=== PATIENT | female | born 1970 | race Caucasian/White ===

== ENCOUNTER 2016-09-12 12:22 | Day surgery (SDC) | payer OTHER ==
[2016-09-12] VITALS (9 sets, daily range): BP systolic 112–142; BP diastolic 70–86; PULSE 70–94; RESP 12–23; O2SAT 96–100
[~2016-09-12] VITALS: Ht 170.2 cm; Wt 78.4 kg
--- NOTE | 2016-09-12 09:08 | PCM.HPANE ---
Patient Data Date of Service: Sep 12, 2016 Surgeon Admitting Provider: Attending Provider:Mina Cooper DO Primary Care Physician:Dell Kate MD Other Provider:Jatin Chen Anesthesia Reason for Visit Right Knee Medial Meniscal Tear Ht/WT & BMI Height (Feet): 5 Height (Inches): 8 Weight (Kilograms): 78.92 Body Mass Index 26.00 Allergies Coded Allergies: latex (Verified Allergy, Severe, 05/11/09) Past Anesthesia History Anesthesia History: Denies:: Abnormal Airway, Anesthesia Reactions, Difficult Intubation, Fam Anesthesia Reaction Diabetes History Hx Diabetes?: No MRSA MRSA: No Medications Hypertension Medication: No Home Meds Incl Beta Abraham: No Reported Medications [ocp] No Conflict Check1 Tab DAILY 09/08/16 Cetirizine HCl (Zyrtec)10 Mg Oofavlv04 Mg PO HS PRN allergy sx #30 CAPSULE Ref 0 09/08/16 Omeprazole 20 Mg Capsule.dr20 Mg PO DAILY Ref 0 09/08/16 Multivitamin (Multi Vitamin Daily)1 Each Tablet1 Each PO DAILY 30 Days Ref 0 09/08/16 History History of ENT Problems?: Yes HEENT History: Positive for:: Sinus Problem (current sinus issues- ) Denies:: Abnormal Airway Cataracts Difficult Intubation Dysphagia Glaucoma Hearing Problem TMJ Hx of Heart Problems?: No Cardiovascular History: Denies:: AICD Abdominal Aortic Aneurism Atrial Fibrillation Chest Pain Edema Heart Murmur Hypertension Irregular Heartbeat Pacemaker Hx of Respiratory Problem?: No Respiratory History: Denies:: Asthma COPD Emphysema Oxygen Administration Pneumonia Tuberculosis Use of C-PAP Machine Use of Inhalers / NEBS Hx Neurologic Problems?: No Neurological History: Denies:: CVA Dizziness Headaches Multiple Sclerosis Parkinson's Disease Seizures Hx of GI Problems?: Yes Gastrointestinal History: Positive for:: Gastroesphageal Reflux (on rx) Heartburn Denies:: Cirrhosis Gall Bladder Disease Gastrointestinal Bleeding Hepatitis Hiatal Hernia Liver Disease Rectal Bleeding Hx of Problems?: No Genitourinary History: Denies:: Kidney Stones Urinary Tract Infection Female Hx: Denies:: Currently (on BCP) Problems with Breasts? (benign lumpectomy left breast) Skin History: Denies:: History Skin Disorders? Pressure Ulcers Hx Musculoskeletal Problems?: Yes Musculoskeletal History: Positive for:: Musculoskeletal Trauma (right knee current admission problem) Denies:: Back Injury Degenerative Joint Fibromyalgia Joint Replacement Osteoarthritis Rheumatoid Arthritis Hx of Psycho/Social Problems?: No Psycho Social History: Denies:: Anxiety Hx Depression Hx Surgeries?: Yes (tonsil, breast lumpectomy, sinus ) Hx Any Other Health Problems?: Yes Other History: Denies:: Cancer Thyroid Disease History Blood Transfusions: Positive for:: Accept Blood Products? Denies:: Blood Transfusions Hx Diabetes: No Hx Alcohol Use: YesAlcoholic Drinks Per Day: once monthlyHx Substance Use: No Have You Smoked inLast 12 mo: No Stop/Bang Treated for Sleep Apnea?: No Do You Have a CPAP Machine?: No S-Snoring: Do You Snore Loudly: No T-Tired: feel tired, fatigued: No O-Obsered: Observed not breath: No P-Blood Pressure: treated: No B- Body Mass Index > 35 kg/m2: No A- Age over 50: No N- Neck Large Circumference: No G- Gender Male: No RAMEZ Total Score: 0 RAMEZ Risk Assessment: Low Risk, <3 Yes Risk Assessment Category Category 1A: Patient has history of documented sleep apnea, and HAS NOT received any narcotic, sedative or anesthesia administration during this stay. Category 1B: Patient has history of documented sleep apnea, and HAS received any narcotic , sedative or anesthesia administration during this stay Category 2: Patient has SUSPECTED Obstructive Sleep Apnea, and HAS received any narcotic , sedative or anesthesia administration during this stay. Category 3: Patient has SUSPECTED Obstructive Sleep Apnea and HAS NOT received narcotic, sedative or anesthesia administration during this stay. Category 4: Outpatient in Procedural Areas with known sleep apnea or who screen positive for High Risk via the STOP/BANG questionnaire. Exam Exam General Appearance: Alert, Oriented X3, Cooperative, No Acute Distress HEENT/AIRWAY: MP 2 Lungs: Clear to Auscultation, Normal Air Movement Heart: Exam Unremarkable, Normal S1, Normal S2 Plan Impression Patient chart reviewed, patient interviewed and anesthestic plan with risks, benefits, and alternatives discussed, and informed consent obtained. ASA Physical Status: ASA1 Normal Healthy Anesthetic Plan: Gustavo Burt DO Sep 12, 2016 09:08
[~2016-09-12 12:22] MED LIST: CETI10CA PO; MULT-1018 PO; OCP; OMEP20CA11 PO
[2016-09-12] MEDS ORDERED: Ketamine 10 mg/mL 20 mL Inj ONE (12:23)
[2016-09-12] MEDS ORDERED: Propofol 10,000 mCg/mL 20 mL Inj ONE (12:23)
[2016-09-12] MEDS ORDERED: Dexamethasone 4 mg/mL Inj ONE (12:23)
[2016-09-12] MEDS ORDERED: Ondansetron 2 mg/mL 2 mL Inj ONE (12:23)
[2016-09-12] MEDS ORDERED: fentaNYL-PF 50 mCg/mL 2 mL Inj ONE (12:23)
[2016-09-12] MEDS: Lactated Ringer's 1,000 ML IV SCH ×2 (12:48→14:00)
[2016-09-12] MEDS ORDERED: LEVO1TAB17 PO (12:49)
[2016-09-12] MEDS ORDERED: Lidocaine 2%-Epi 1:100,000 20 mL Inj INFILTRATE ONE (15:03)
[2016-09-12] MEDS ORDERED: Ropivacaine-PF 0.5% 30 mL Inj INFILTRATE ONE (15:14)
[2016-09-12] MEDS ORDERED: Atropine 0.4 mg/mL Inj IVPUSH PRN (15:25)
[2016-09-12] MEDS ORDERED: EPHEDrine Sulfate 50 mg/mL Inj IVPUSH PRN (15:25)
[2016-09-12] MEDS ORDERED: Dexamethasone 4 mg/mL Inj IVPUSH PRN (15:25)
[2016-09-12] MEDS ORDERED: fentaNYL-PF 50 mCg/mL 2 mL Inj IVPUSH PRN (15:25)
[2016-09-12] MEDS ORDERED: Phenylephrine 10,000 mCg/mL Inj IVPUSH PRN (15:25)
[2016-09-12] MEDS ORDERED: Lactated Ringer's 1,000 ML IV SCH (15:25)
[2016-09-12] MEDS ORDERED: HYDROmorphone 1 mg/mL Inj IVPUSH PRN (15:25)
[2016-09-12] MEDS ORDERED: Labetalol 5 mg/mL 4 mL Inj IV PRN (15:25)
[2016-09-12] MEDS ORDERED: MetoCLOpramide 5 mg/mL 2 mL Inj IVPUSH PRN (15:25)
[2016-09-12] MEDS ORDERED: Lactated Ringer's 500 ML IV PRN (15:25)
[2016-09-12] MEDS ORDERED: Ondansetron 2 mg/mL 2 mL Inj IVPUSH PRN (15:25)
--- NOTE | 2016-09-12 15:59 | PCM.ANEP1 ---
Post Anesthesia Phase 1 PACU Phase 1 Assessment Date of Service: Sep 12, 2016 Vital Signs Vital Signs Date Time Temp Pulse Resp B/P Pulse Ox O2 Delivery O2 Flow Rate FiO2 09/12/16 12:56 36.9 86 18 127/86 99 Room Air Anesthetic Administered: GA MCCULLOUGH's with Equal Strength: Yes Pain: No Lungs: Clear to Auscultation, Normal Air Movement Dermatome Level: Full Sensation Gustavo Mcdonald DO Sep 12, 2016 15:59
[2016-09-12] MEDS ORDERED: HYDROcodone-APAP 5-325 mg Tablet PO PRN (16:10)
[2016-09-12] MEDS ORDERED: Acetaminophen IV 1,000 MG in IV Premix 1 EACH IV PRN (16:10)
[2016-09-12] MEDS ORDERED: hydrOXYzine Pamoate 25 mg Capsule PO PRN (16:10)
--- NOTE | 2016-09-12 16:34 | PCM.ANEP2 ---
Post Anesthesia Evaluation ASA/CMS Post Anesthesia Date of Service: Sep 12, 2016 VS in Patient's Normal Range?: Yes Resp Stable; Airway Patent?: Yes CV Function & Hydration Stable: Yes Mental Status Recovered?: Yes Pain control Satisfactory?: Yes N/V Control Satisfactory?: Yes Gustavo Mcdonald DO Sep 12, 2016 16:34
--- NOTE | 2016-09-12 23:22 | OP ---
[address] [address] OPERATIVE REPORT PATIENT: ZORA RAMÍREZ : 1970 MR#: [id number] ADMIT: 09/12/2016 JOB ID: [id number] DATE OF SURGERY: 09/12/2016 PREOPERATIVE DIAGNOSIS(ES): Right knee torn medial meniscus with medial parameniscal cyst. POSTOPERATIVE DIAGNOSIS(ES): Right knee torn medial meniscus with medial parameniscal cyst with torn lateral meniscus. PROCEDURE: 1. Right knee video arthroscopy with partial medial and lateral meniscectomy. 2. Right knee medial open cyst removal of ganglion cyst. SURGEON: Mina Cooper DO. PULLER OUT: Thomas Renae DO. INDICATIONS: The patient is a 46-year-old female with right knee pain. She injured the knee several years ago and then re-injured it when she slipped in a parking lot while wearing ski boots over [employer]. She had onset of medial knee pain and swelling. She had an MRI which demonstrated a torn medial meniscus and a large parameniscal cyst. We discussed treatment options for this and she wished to proceed with knee arthroscopy with meniscectomy and cyst removal. We discussed the risks, benefits and possible complications of surgery. All questions were answered and she wished to proceed. PROCEDURE IN DETAIL: The patient was brought to the operating room. She was given LMA general anesthetic. The right lower extremity was sterilely prepped and draped. An incision was made over the anterolateral knee at the level of the joint line and the blunt trocar was introduced into the knee. Inspection was undertaken. She was found to have a complex tear in the posterior horn of medial meniscus. Medial portal was established under needle localization and her meniscal tear was resected back to a stable base with a combination of biters and shaver. Her articular cartilage also had some damage in the medial femoral condyle with some C2 and C3 chondromalacia. Her ACL was intact. Her lateral compartment had a tear in the posterior horn lateral meniscus. This was resected back to a stable base with a combination of biters and shaver. Her lateral compartment and articular cartilage was in good condition. Her patellofemoral joint cartilage was in good condition. She did have some impinging fat pad which was resected with the shaver. Next, the arthroscopic portion was completed and the portals were closed with interrupted nylon suture. The tourniquet was then inflated and an incision was made longitudinally over the medial knee. Dissection was carefully carried through the subcutaneous tissue. Electrocautery was used for hemostasis. The dissection was carefully carried down onto the medial knee parameniscal cyst. The cyst ruptured, unfortunately during the dissection, but the cyst sac was carefully and meticulously dissected free of the surrounding tissue. Care was taken to not damage the MCL. The cyst was quite large, about 3-4 cm in size, and was removed in its entirety. The wound was then irrigated and the tourniquet was let down. Electrocautery was used for hemostasis. The wound was then closed with 3-0 Vicryl to approximate the subcutaneous tissue and the skin was closed with running subcuticular 4-0 Monocryl. Naropin was added as an adjunct local anesthetic. Sterile dressings were applied. Patient tolerated the procedure well. Blood loss was minimal. Specimen: Right knee medial cyst. POSTOPERATIVE PROTOCOL: Have the patient weightbear to tolerance, use crutches as needed. I would like her to use a compressive Scott wrap over her knee for three to four weeks to prevent the cyst from recurring. She was given a prescription for [place] 5/325 for pain, #40.
--- NOTE | 2016-09-14 10:55 | PATH ---
SURGICAL PATHOLOGY Attending Physician:Mina Cooper DO CASE STATUS: Signed Out PATIENT NAME: ZORA RAMÍREZ PID: [id number] : 1970 DATE COLLECTED:09/12/2016 00:00 SPECIMEN: Ganglion Cyst CLINICAL HISTORY: RIGHT KNEE MED. MENISCUS TEAR AND CYST 1). RIGHT KNEE CYST FINAL DIAGNOSIS: 1.RIGHT KNEE CYST: GANGLION CYST. ICD10 CODE M67.4 GROSS DESCRIPTION: The specimen is received in one formalin filled container labeled with the patient's name, sublabeled "R. knee cyst" and consists of pink [place] portion of tissue which measures 1.5 x 1.0 x 0.5 CM. The specimen is inked blue. The specimen is sectioned into 4 pieces and entirely submitted in one cassette. 09/13/2016 [facility] MICRO DESCRIPTION: See diagnosis. ICD-9 CODES: CPT CODES: 1: 83529 Electronically Signed Out Bri Eldridge MD [facility] [address], [place] [address] Technical component performed at [facility], [facility] [address], [place], [address]
== END 2016-09-12 23:59 | disposition home or self-care (01) ==
LOC: SAS 12:22
PROVIDERS: ATTEND Orthopaedic Surgery
DX: S83.231A Complex tear of medial meniscus, current injury, right knee, initial encounter (principal); S83.281A Other tear of lateral meniscus, current injury, right knee, initial encounter; M22.41 Chondromalacia patellae, right knee; M67.40 Ganglion, unspecified site; W00.0XXA Fall on same level due to ice and snow, initial encounter; Y93.9 Activity, unspecified; Y92.838 Other recreation area as the place of occurrence of the external cause; Y99.8 Other external cause status; K21.9 Gastro-esophageal reflux disease without esophagitis
CPT/HCPCS: 11404; 29880; J0131; J1100; J2250; J2405; J2795; J3010; J7120